=== PATIENT | female | born 1980 | race African-American/Black ===

== ENCOUNTER → 2023-11-22 09:33 | Outpatient (REF) | payer BC, SELFPAY | LOC: WDC 09:33 | PROVIDERS: ATTENDING PHYSICIAN Family Medicine | DX: N63.10 Unspecified lump in the right breast, unspecified quadrant (principal); N64.4 Mastodynia; N63.12 Unspecified lump in the right breast, upper inner quadrant | CPT/HCPCS: 76642; 77062; 77066 ==

== ENCOUNTER → 2024-01-27 09:46 | Outpatient (REF) | payer BC, SELFPAY ==
[2024-01-27 11:41] LABS: % Basophils 1.3 % (0-2); % Eosinophils 2.5 % (0-6); % Lymphocytes 43.2 % (20.5-51.1); % Monocytes 8.2 % (1.7-9.3); % Neutrophils 44.8 % (42.2-75.2); Absolute Eosinophils 0.1 10^3/uL (0-0.7); Absolute Lymphocytes 1.4 10^3/uL (1.2-3.4); Absolute Monocytes 0.3 10^3/uL (0.1-0.6); Absolute Neutrophils 1.4 10^3/uL (1.4-6.5); Hematocrit 39.2 % (37.0-47.0); Hemoglobin 13.4 g/dL (12.0-16.0); Mean Corp Hgb Conc. 34.2 g/dL (33.0-37.0); Mean Corpuscular Hgb 30.1 pg (27.0-31.0); Mean Corpuscular Volume 88.1 fL (81.0-99.0); Mean Platelet Volume 12.5 fL (7.4-10.4); Nucleated Red Blood Cells % 0 %; Platelet Count 227 10^3/uL (130-400); Red Blood Cell Count 4.45 10^6/uL (4.20-5.40); Red Cell Dist. Width 12.2 % (11.5-14.5); White Blood Cell Count 3.2 10^3/uL (4.8-10.8)
[2024-01-27 12:48] LABS: TSH 1.54 uIU/ml (0.47-4.68)
[2024-01-27 12:51] LABS: ALT (SGPT) 16 U/L (0-35); AST (SGOT) 29 U/L (14-36); Albumin 4.3 g/dl (3.5-5.0); Alkaline Phosphatase 61 U/L (38-126); Amylase 125 U/L (30-110); Blood Urea Nitrogen 10 mg/dl (7-17); Calcium 9.3 mg/dl (8.4-10.2); Carbon Dioxide 27 mmol/L (22-30); Chloride 105 mmol/L (98-107); Glucose 69 mg/dl (70-99); HDL Cholesterol 78 mg/dl; LDL Cholesterol, Calculated 88 mg/dl; Lipase 475 U/L (23-300); Magnesium 2.1 mg/dl (1.6-2.3); Potassium 4.6 mmol/L (3.5-5.1); Sodium 135 mmol/L (135-145); Total Bilirubin 0.9 mg/dl (0.2-1.3); Total Cholesterol 177 mg/dl (50-199); Total Protein 7.3 g/dl (6.3-8.2); Triglyceride 56 mg/dl (10-149); Very Low Density Lipoprotein 11 mg/dl (0-30); eGFR > 60.00
[2024-01-27 13:08] LABS: Vitamin B12 610 pg/ml (239-931)
[2024-01-27 14:35] LABS: Glycohemoglobin (HgbA1c) 5.2 % (4.0-5.6)
== END ==
LOC: REG 09:46
PROVIDERS: ATTENDING PHYSICIAN Family Medicine
DX: Z00.00 Encounter for general adult medical examination without abnormal findings (principal); R53.83 Other fatigue; R74.8 Abnormal levels of other serum enzymes; R19.7 Diarrhea, unspecified
CPT/HCPCS: 36415; 80053; 80061; 82150; 82306; 82607; 83036; 83690; 83735; 84443; 85025

== ENCOUNTER → 2024-01-31 11:33 | Outpatient (REF) | payer BC, SELFPAY | LOC: PAVMRI 11:33 | PROVIDERS: ATTENDING PHYSICIAN Internal Medicine Gastroenterology; FAMILY PHYSICIAN Family Medicine | DX: R74.8 Abnormal levels of other serum enzymes (principal); R10.12 Left upper quadrant pain; K52.9 Noninfective gastroenteritis and colitis, unspecified | CPT/HCPCS: 74183 ==

== ENCOUNTER → 2024-02-01 10:11 | Outpatient (REF) | payer BC, SELFPAY | LOC: RAD 10:11 | PROVIDERS: ATTENDING PHYSICIAN Internal Medicine Gastroenterology; FAMILY PHYSICIAN Family Medicine | DX: R10.32 Left lower quadrant pain (principal); R74.8 Abnormal levels of other serum enzymes | CPT/HCPCS: 76830; 76856 ==

== ENCOUNTER → 2024-04-11 10:13 | Outpatient (REF) | payer BC, SELFPAY ==
[2024-04-13 13:29] LABS: Gastrin 30 pg/mL (0-100)
[2024-04-13 13:45] LABS: Chromogranin A 28 ng/mL (0-187)
== END ==
LOC: REG 10:13
PROVIDERS: ATTENDING PHYSICIAN Internal Medicine Gastroenterology; FAMILY PHYSICIAN Family Medicine
DX: K52.9 Noninfective gastroenteritis and colitis, unspecified (principal)
CPT/HCPCS: 36415; 82941; 86316

== ENCOUNTER → 2024-04-16 09:45 | Outpatient (REF) | payer BC, SELFPAY ==
[2024-04-18 16:12] LABS: 24 Hour Urine Total Volume 3990 mL; 5HIAA, 24 Hour Urine 4 mg/d (0-15); 5HIAA, Urine 0.9 mg/L; 5HIAA/Creatinine Ratio 2 mg/gCR (0-14); Creatinine, Urine 24 Hour 1596 mg/d (700-1600); Creatinine, Urine per Volume 40 mg/dL; Urine Collection Length 24 hr
== END ==
LOC: REG 09:45
PROVIDERS: ATTENDING PHYSICIAN Internal Medicine Gastroenterology; FAMILY PHYSICIAN Family Medicine
DX: K52.9 Noninfective gastroenteritis and colitis, unspecified (principal)
CPT/HCPCS: 81050; 83497

== ENCOUNTER 2024-04-20 06:38 | Day surgery (SDC) | payer BC, SELFPAY ==
[2024-04-20] VITALS (7 sets, daily range): BP systolic 102–127; BP diastolic 66–74; BMI 23.5
== END 2024-04-20 13:25 | disposition home or self-care (01) ==
LOC: SDS 06:38
PROVIDERS: ATTENDING PHYSICIAN Internal Medicine Gastroenterology
DX: K86.89 Other specified diseases of pancreas (principal); R93.3 Abnormal findings on diagnostic imaging of other parts of digestive tract
CPT/HCPCS: 43242; 43248; 88172; 88173; 88305; 88177; 88341; 88342

== ENCOUNTER → 2024-10-25 09:00 | Outpatient (REF) | payer BC, SELFPAY ==
[2024-10-25 09:52] LABS: % Basophils 1.4 % (0-2); % Eosinophils 0.7 % (0-6); % Immature Granulocytes 0.4 % (0-0.5); % Lymphocytes 43.7 % (20.5-51.1); % Monocytes 7.4 % (1.7-9.3); % Neutrophils 46.4 % (42.2-75.2); Absolute Lymphocytes 1.2 10^3/uL (1.2-3.4); Absolute Monocytes 0.2 10^3/uL (0.1-0.6); Absolute Neutrophils 1.3 10^3/uL (1.4-6.5); Hematocrit 41.2 % (37.0-47.0); Hemoglobin 13.7 g/dL (12.0-16.0); Mean Corp Hgb Conc. 33.3 g/dL (33.0-37.0); Mean Corpuscular Hgb 30.3 pg (27.0-31.0); Mean Corpuscular Volume 91.2 fL (81.0-99.0); Mean Platelet Volume 11.4 fL (7.4-10.4); Nucleated Red Blood Cells % 0 %; Platelet Count 188 10^3/uL (130-400); Red Blood Cell Count 4.52 10^6/uL (4.20-5.40); White Blood Cell Count 2.8 10^3/uL (4.8-10.8)
[2024-10-25 10:16] LABS: ALT (SGPT) 14 U/L (0-35); AST (SGOT) 26 U/L (14-36); Albumin 4.2 g/dl (3.5-5.0); Alkaline Phosphatase 70 U/L (38-126); Amylase 119 U/L (30-110); Blood Urea Nitrogen 12 mg/dl (7-17); Calcium 9.2 mg/dl (8.4-10.2); Chloride 104 mmol/L (98-107); Glucose 80 mg/dl (70-99); Iron 103 ug/dl (37-170); Lipase 463 U/L (23-300); Potassium 4.4 mmol/L (3.5-5.1); Sodium 137 mmol/L (135-145); Total Bilirubin 0.9 mg/dl (0.2-1.3); Total Protein 7.5 g/dl (6.3-8.2); eGFR > 60.00
[2024-10-25 10:26] LABS: Carbon Dioxide 24 mmol/L (22-30)
[2024-10-25 10:28] LABS: Percent Saturation 29 % (20-50); Total Iron Binding Capacity 345 ug/dl (265-497)
[2024-10-25 10:45] LABS: Vitamin D, 25-OH*** 30.8 ng/mL (30-80)
[2024-10-25 10:59] LABS: TSH 1.03 uIU/ml (0.47-4.68)
[2024-10-25 11:03] LABS: Ferritin 32.1 ng/ml (6.24-137)
[2024-10-25 11:18] LABS: Vitamin B12 587 pg/ml (239-931)
== END ==
LOC: REG 09:00
PROVIDERS: ATTENDING PHYSICIAN Family Medicine
DX: R10.9 Unspecified abdominal pain (principal); R74.8 Abnormal levels of other serum enzymes; R19.7 Diarrhea, unspecified
CPT/HCPCS: 36415; 80053; 82150; 82306; 82607; 82728; 83540; 83550; 83690; 84443; 85025

== ENCOUNTER → 2024-12-20 11:43 | Outpatient (REF) | payer BC, SELFPAY ==
[2024-12-20 13:30] LABS: FSH 20.5 mIU/ml; Luteinizing Hormone 9.42 mIU/ml
[2024-12-20 13:46] LABS: Estradiol 15.1 pg/ml
== END ==
LOC: REG 11:43
PROVIDERS: ATTENDING PHYSICIAN Obstetrics & Gynecology Gynecology; OTHER PHYSICIAN Family Medicine
DX: N95.1 Menopausal and female climacteric states (principal)
CPT/HCPCS: 36415; 82670; 83001; 83002

== ENCOUNTER → 2025-01-02 14:20 | Outpatient (REF) | payer BC, SELFPAY | LOC: RAD 14:20 | PROVIDERS: ATTENDING PHYSICIAN Obstetrics & Gynecology Gynecology; FAMILY PHYSICIAN Family Medicine | DX: N83.202 Unspecified ovarian cyst, left side (principal) | CPT/HCPCS: 76830; 76856 ==

== ENCOUNTER → 2025-01-11 14:15 | Outpatient (REF) | payer BC, SELFPAY | LOC: WDC 14:15 | PROVIDERS: ATTENDING PHYSICIAN Obstetrics & Gynecology Gynecology; FAMILY PHYSICIAN Family Medicine | DX: Z12.31 Encounter for screening mammogram for malignant neoplasm of breast (principal) | CPT/HCPCS: 77063; 77067 ==